=== PATIENT | female | born 1975 ===

== ENCOUNTER → 2021-11-02 | Outpatient (REF) | payer OTHER | LOC: M LABCFH 15:20 | PROVIDERS: ATTEND Physician Assistant | DX: Z12.4 Encounter for screening for malignant neoplasm of cervix (principal); N76.0 Acute vaginitis ==

== ENCOUNTER → 2023-11-30 | Outpatient (REF) | LOC: M CFLAB 13:28 | PROVIDERS: ATTEND Physician Assistant | DX: Z12.4 Encounter for screening for malignant neoplasm of cervix (principal); Z11.59 Encounter for screening for other viral diseases ==